=== PATIENT | female | born 1950 | race Caucasian/White ===

== ENCOUNTER 2019-05-24 16:30 | Inpatient (IN) | payer MEDICARE, BC ==
[~2019-05-24] VITALS: Ht 177.8 cm; Wt 72.6 kg
--- NOTE | 2019-05-24 19:50 | NUR ---
PATIENT ARRIVED ON UNIT VIA WHEELCHAIR WITH . PATIENT IS VIP FROM [facility]. ALERT AND ORIENTED X 4. SPEAKS FARSI, BUT IS ABLE TO UNDERSTAND SUDANESE FLUENTLY. PATIENT C/O PAIN UPON ASSESSMENT. WILL CONTACT MD FOR PAIN MEDICATION ORDERS. PATIENT AMBULATES WITH WALKER. LEFT KNEE SURGERY NOTED. DRESSING NOT CHANGED. WILL CLARIFY WOUND DRESSING ORDER WITH MD IN THE MORNING. PHOTO TAKEN. HISTORY OF DIABETES, BUT NO INSULIN SLIDING SCALE. ITEMS CATEGORIZED. MRSA SWAB DONE. CALL LIGHT AND FREQUENTLY USED ITEMS WITHIN REACH. WILL CONTINUE TO MONITOR.
[2019-05-24] MEDS ORDERED: LATA2.5D2 LEFTEYE (20:31)
[2019-05-24] MEDS ORDERED: FLUO40CA8 PO (20:31)
[2019-05-24] MEDS ORDERED: DORZ10DR10 LEFTEYE (20:31)
[2019-05-24] MEDS ORDERED: BRIN10DR LEFTEYE (20:31)
[2019-05-24] MEDS ORDERED: BISA-79 PO (20:31)
[2019-05-24] MEDS ORDERED: TIMO5SOL11 LEFTEYE (20:31)
[2019-05-24] MEDS ORDERED: METF-440 PO (20:31)
[2019-05-24] MEDS ORDERED: ASPI-612 PO (20:31)
[2019-05-24] MEDS ORDERED: BISA10SU61 RC (20:31)
[2019-05-24] MEDS ORDERED: BISACODYL 5 MG TABLET.DR PO SCH (21:00)
[2019-05-24] MEDS ORDERED: BISACODYL 10 MG SUPP.RECT RC SCH (21:00)
[2019-05-24 21:05] VITALS: BP 126/42
[2019-05-24] MEDS: LATANOPROST OPHT DROP 2.5 ML BOTTLE LEFTEYE SCH (21:21)
[2019-05-24] MEDS: OXYCODONE HCL 5 MG TABLET PO PRN (21:48)
--- NOTE | 2019-05-24 23:01 | NUR ---
POST OP APPOINTMENT WITH SURGEON KAMILA 06/03/2019 2:45 PM. AT [facility]. PHONE NUMBER .
[2019-05-25 05:05] VITALS: BP 114/49
[2019-05-25] MEDS: OXYCODONE HCL 5 MG TABLET PO PRN (05:36)
--- NOTE | 2019-05-25 05:36 | NUR ---
Patient noted to have an increased temperature of 102. Left knee noted to be slightly red. 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 Will continue to monitor.
[2019-05-25 06:14] LABS: BASOPHILS % (AUTO) 0.2 % (0.0-2.0); EOSINOPHILS % (AUTO) 0.4 % (0.0-7.0); HEMATOCRIT 32.6 % (31.2-41.9); HEMOGLOBIN 10.9 g/dL (10.9-14.3); LYMPHOCYTES # (AUTO) 1.6 K/uL (20.0-40.0); LYMPHOCYTES % (AUTO) 22.7 % (20.5-51.5); MEAN CORPUSCULAR HGB CONC 33 g/dL (32.3-35.6); MEAN CORPUSCULAR VOLUME 86.8 fL (75.5-95.3); MONOCYTES # (AUTO) 0.6 K/uL (2.0-10.0); MONOCYTES % (AUTO) 8.2 % (0.0-11.0); NEUTROPHILS # (AUTO) 4.8 K/uL (1.8-8.9); NEUTROPHILS % (AUTO) 68.5 % (38.5-71.5); PLATELET COUNT (AUTO) 171 K/uL (179-408); RED BLOOD CELL COUNT(AUTO) 3.75 MIL/uL (3.63-4.92)
--- NOTE | 2019-05-25 06:20 | NUR ---
Spoke with disease education specialist VIP MD regarding increased temperature and reddened wound appearance. MD order stat labs and Tylenol [id number]. Will endorse to oncoming shift accordingly.
[2019-05-25 06:24] LABS: CREATININE 0.5 mg/dL (0.6-1.3); POTASSIUM 4.2 mmol/L (3.5-5.1)
[2019-05-25] MEDS: ACETAMINOPHEN 325 MG TABLET PO PRN ×2 (06:29→20:01)
[2019-05-25 06:30] LABS: BILIRUBIN,TOTAL 0.7 mg/dL (0.2-1.0); TOTAL PROTEIN, SERUM 6.2 g/dL (6.4-8.2)
[2019-05-25 08:00] VITALS: BP 97/49
[2019-05-25 08:04] LABS: *BLOOD, URINE NEGATIVE (NEGATIVE); *CLARITY,URINE CLEAR (CLEAR); *COLOR,URINE AMBER (YELLOW); *KETONES,URINE NEGATIVE (NEGATIVE); LEUKOCYTE ESTERASE ,URINE NEGATIVE (NEGATIVE); NITRITE, URINE NEGATIVE (NEGATIVE); PH,URINE 8.5 (5.0-8.0); UGLUCOSE NEGATIVE (NEGATIVE)
[2019-05-25 08:13] LABS: *BILIRUBIN,URIN 1+ (NEGATIVE)
[2019-05-25] MEDS: DORZOLAMIDE 2% OPHT DROP 10 ML BOTTLE LEFTEYE SCH ×3 (08:13→16:32)
[2019-05-25] MEDS: ASPIRIN 325 MG TABLET PO SCH ×2 (08:20→16:32)
[2019-05-25] MEDS: FLUOXETINE HCL 20 MG CAPSULE PO SCH (08:20)
[2019-05-25] MEDS: METFORMIN HCL 500 MG TABLET PO SCH (08:20)
[2019-05-25] MEDS: TIMOLOL MALEATE XE 0.5% OPHT 5 ML BOTTLE LEFTEYE SCH (08:20)
[2019-05-25 08:21] LABS: BACTERIA,URINE NONE SEEN /HPF (NONE SEEN); RBC,URINE 0-3 /HPF (0-3); SQUAMOUS EPITHELIAL CELL,UR FEW /HPF (NONE SEEN); WBC,URINE 0-3 /HPF (0-3)
[2019-05-25] MEDS ORDERED: BRINZOLAMIDE 1% OPHT DROP 10 ML BOTTLE LEFTEYE SCH (09:00)
--- NOTE | 2019-05-25 15:56 | NUR ---
Received patient awake in bed in stable condition. Started therapy with OT/PT. tolerated well. Pain management receive prior therapy. not in distress. refuse suppository for BM this morning and at this time. Latest temp-98.5'F. no complaint of pain/discomfort. will endorse and continue monitor
[2019-05-25 16:04] VITALS: BP 118/56
--- NOTE | 2019-05-25 19:28 | NUR ---
Patient received in bed, with family at bedside. Alert and oriented x 4. C/O left knee pain upon assessment, but patient does not want pain medication at this time. Increased temperature when vital signs taken. Will administer Tylenol. Left knee original dressing still. Day shift unable to get in touch with surgeon to verify dressing order. Will follow up. Call light and frequently used items within reach. Will continue to monitor.
[2019-05-25] MEDS: LATANOPROST OPHT DROP 2.5 ML BOTTLE LEFTEYE SCH (20:04)
[2019-05-25 20:36] VITALS: BP 101/58
[2019-05-26 06:20] VITALS: BP 139/58
[2019-05-26 07:10] VITALS: BP 126/57
[2019-05-26] MEDS: METFORMIN HCL 500 MG TABLET PO SCH (08:23)
[2019-05-26] MEDS: TIMOLOL MALEATE XE 0.5% OPHT 5 ML BOTTLE LEFTEYE SCH (08:23)
[2019-05-26] MEDS: ASPIRIN 325 MG TABLET PO SCH ×2 (08:24→17:09)
[2019-05-26] MEDS: FLUOXETINE HCL 20 MG CAPSULE PO SCH (08:24)
[2019-05-26] MEDS: DORZOLAMIDE 2% OPHT DROP 10 ML BOTTLE LEFTEYE SCH ×3 (08:24→17:09)
--- NOTE | 2019-05-26 14:37 | NUR ---
Pt received this morning in bed resting. Pt assessed, AOx4, able to make needs known, reports slight pain but does not want pain medication, no acute distress or SOB noted. VSS on RA, no fever with temp 98.3. Left knee original dressing still intact. Pt compliant with routine medications and cooperative with therapies as offered. Family visited with Pt for lunch. Bed in locked and lowest position, with side rails up x2. Call light and personal belongings placed within reach. All safety and comfort measures implemented. Will continue to monitor.
[2019-05-26 15:10] VITALS: BP 97/58
[2019-05-26 19:37] VITALS: BP 116/58
--- NOTE | 2019-05-26 19:39 | NUR ---
Patient received in bed, with family at bedside. Alert and oriented x 4. No C/O pain, SOB, or distress upon assessment. Left knee original dressing. Call light and frequently used items within reach. Will continue to monitor.
[2019-05-26] MEDS: LATANOPROST OPHT DROP 2.5 ML BOTTLE LEFTEYE SCH (20:16)
[2019-05-27 04:39] VITALS: BP 113/58
[2019-05-27] MEDS: FLUOXETINE HCL 20 MG CAPSULE PO SCH (08:01)
[2019-05-27] MEDS: METFORMIN HCL 500 MG TABLET PO SCH (08:01)
[2019-05-27] MEDS: DORZOLAMIDE 2% OPHT DROP 10 ML BOTTLE LEFTEYE SCH ×3 (08:01→17:12)
[2019-05-27] MEDS: ACETAMINOPHEN 325 MG TABLET PO PRN (08:01)
[2019-05-27] MEDS: ASPIRIN 325 MG TABLET PO SCH ×2 (08:01→17:11)
[2019-05-27] MEDS: TIMOLOL MALEATE XE 0.5% OPHT 5 ML BOTTLE LEFTEYE SCH (08:02)
[2019-05-27 08:35] VITALS: BP 106/50
--- NOTE | 2019-05-27 10:32 | NUR ---
INDIVIDUALIZED OVERALL PLAN OF CARE
--- NOTE | 2019-05-27 11:00 | NUR ---
Tried to call Dr Bynum's clinic, ortho for surgical wound care and follow-up appointment verification. No answer, will try again.
--- NOTE | 2019-05-27 12:37 | NUR ---
Received patient, up with occupational therapy, morning care done. Able to ambulate well with front wheel walker, with tolerable pain over left leg. PRN Tylenol given. Not in any form of distress.
--- NOTE | 2019-05-27 15:00 | NUR ---
Called Dr Bynum ([phone]) for surgical wound care orders and follow-up but still with voicemail. Left voicemail and awaiting for call back.
--- NOTE | 2019-05-27 15:19 | NUR ---
WOUND CARE CONSULT: PT PRESENTS WITH LEFT KNEE ORTHO DRESSING WHICH IS DRY AND INTACT WITH SWELLING TO KNEE AND SOME DISCOLORATION TO SKIN, PRESENT ON ADMISSION. DEFER TO ORTHO MD FOR DRESSING CHANGE. PT HAS APPT WITH ORTHO PER NURSING STAFF. PT IS AMBULATORY AND CONTINENT. WILL SEE PRN. CURRENT MARIAA SCORE IS 19.
[2019-05-27 16:28] VITALS: BP 102/0
[2019-05-27 19:47] VITALS: BP 131/61
[2019-05-27] MEDS: LATANOPROST OPHT DROP 2.5 ML BOTTLE LEFTEYE SCH (20:22)
--- NOTE | 2019-05-27 21:34 | NUR ---
received in bed upon rounds. aaox4. no acute distress noted. VSS. kept comfortable. needs attended. admitted for a removal of harware to left femoral Dressing clean dry and intact.On pain management. Denies any pain nor any discomfort. Will monitor patient.
[2019-05-28 05:05] VITALS: BP 111/63
--- NOTE | 2019-05-28 06:11 | NUR ---
quiet night. slept well most of the shift. needs attended. VSS. kept comfortable. no acute distress noted. denies any pain nor any discomfort. siderails for safety.
[2019-05-28] MEDS: TIMOLOL MALEATE XE 0.5% OPHT 5 ML BOTTLE LEFTEYE SCH (08:10)
[2019-05-28] MEDS: DORZOLAMIDE 2% OPHT DROP 10 ML BOTTLE LEFTEYE SCH ×3 (08:11→17:04)
[2019-05-28] MEDS: ASPIRIN 325 MG TABLET PO SCH ×2 (08:11→17:04)
[2019-05-28] MEDS: FLUOXETINE HCL 20 MG CAPSULE PO SCH (08:11)
[2019-05-28] MEDS: METFORMIN HCL 500 MG TABLET PO SCH (08:11)
[2019-05-28 08:29] VITALS: BP 112/53
[2019-05-28] MEDS: OXYCODONE HCL 5 MG TABLET PO PRN (09:10)
--- NOTE | 2019-05-28 11:18 | NUR ---
Patient continue therapy for unsteady gait and ADL. tolerated well. Continue pain management oxycodone 10 mg PRN-given prior to therapy. not in distress. will continue monitor
[2019-05-28 16:32] VITALS: BP 109/54
[2019-05-28] MEDS: LATANOPROST OPHT DROP 2.5 ML BOTTLE LEFTEYE SCH (20:11)
--- NOTE | 2019-05-28 20:32 | NUR ---
Received pt sitting on the chair and watching tv. AAO x4. No acute distress noted. Denies pain or discomfort. Safety measures maintained. Call light and personal belongings within reach. Will continue to monitor.
[2019-05-28 20:46] VITALS: BP 103/51
[2019-05-29 04:00] VITALS: BP 118/58
[2019-05-29] MEDS: ACETAMINOPHEN 325 MG TABLET PO PRN (08:22)
[2019-05-29] MEDS: TIMOLOL MALEATE XE 0.5% OPHT 5 ML BOTTLE LEFTEYE SCH (08:22)
[2019-05-29] MEDS: ASPIRIN 325 MG TABLET PO SCH ×2 (08:22→16:34)
[2019-05-29] MEDS: METFORMIN HCL 500 MG TABLET PO SCH (08:22)
[2019-05-29] MEDS: FLUOXETINE HCL 20 MG CAPSULE PO SCH (08:22)
[2019-05-29] MEDS: DORZOLAMIDE 2% OPHT DROP 10 ML BOTTLE LEFTEYE SCH ×3 (08:23→16:34)
--- NOTE | 2019-05-29 09:00 | NUR ---
Received pt. in bed in no distress. A/OX4 verbally responsive and able to make her needs known. No new skin condition. Lt. knee covered with C/D/I dressing. All needs attended and met promptly. All due medications given as ordered and tolerated well. Safety measures in place. Call light and all frequently used items within pt. reach. Will continue to monitor accordingly.
[2019-05-29 09:25] VITALS: BP 112/53
[2019-05-29 16:15] VITALS: BP 115/50
--- NOTE | 2019-05-29 18:24 | NUR ---
End of shift note: All needs attended and met promptly. Safety measures in placed. Bed in low position, brake on, side rails up x2 as an enabler. Call light and all frequently used items within pt. reach. Will endorse to next shift accordingly.
--- NOTE | 2019-05-29 19:50 | NUR ---
Patient received in chair, with family at bedside. Alert and oriented x 4. C/O left knee pain upon assessment, but patient does not want pain medication at this time. Left knee original dressing intact. Call light and frequently used items within reach. Will continue to monitor.
[2019-05-29] MEDS: LATANOPROST OPHT DROP 2.5 ML BOTTLE LEFTEYE SCH (20:12)
[2019-05-29 20:43] VITALS: BP 113/45
[2019-05-30 04:55] VITALS: BP 112/51
[2019-05-30 07:30] VITALS: BP 96/50
[2019-05-30] MEDS: ASPIRIN 325 MG TABLET PO SCH ×2 (08:27→16:29)
[2019-05-30] MEDS: FLUOXETINE HCL 20 MG CAPSULE PO SCH (08:28)
[2019-05-30] MEDS: TIMOLOL MALEATE XE 0.5% OPHT 5 ML BOTTLE LEFTEYE SCH (08:28)
[2019-05-30] MEDS: METFORMIN HCL 500 MG TABLET PO SCH (08:28)
[2019-05-30] MEDS: DORZOLAMIDE 2% OPHT DROP 10 ML BOTTLE LEFTEYE SCH ×3 (08:28→16:29)
[2019-05-30] MEDS: ACETAMINOPHEN 325 MG TABLET PO PRN (08:28)
--- NOTE | 2019-05-30 08:50 | NUR ---
Received pt. sitting on chair. A/OX4 verbally responsive and able to make her needs known. No new skin condition. Lt. knee covered dressing C/D/I. All needs attended and met promptly. All due medications given as ordered and tolerated well. No s/sx of hypo/hyperglycemia. Safety measures in place. Call light and all frequently used items within pt. reach. Will continue to monitor accordingly.
[2019-05-30 17:13] VITALS: BP 112/47
--- NOTE | 2019-05-30 18:08 | NUR ---
End of shift note: No significant change during this shift. All needs attended and met promptly. Safety measures in placed. Bed in low position, brake on, side rails up x2 as an enabler. Call light and all frequently used items within pt. reach. Will endorse to next shift accordingly.
--- NOTE | 2019-05-30 19:05 | NUR ---
Awake, up in a chair during initial rounds. Presented a tolerable pain at this time. Instructed patient to call if pain persist. Safety measure and fall precaution maintained. Continue care as planned.
[2019-05-30 20:16] VITALS: BP 120/66
[2019-05-30] MEDS: LATANOPROST OPHT DROP 2.5 ML BOTTLE LEFTEYE SCH (21:06)
[2019-05-31 06:06] VITALS: BP 118/60
--- NOTE | 2019-05-31 06:47 | NUR ---
Shift End Report: VS stable. Slept good. No complaint presented throughout the night. All needs attended and met. No significant event reported. Continue current rehab plan of care.
--- NOTE | 2019-05-31 08:10 | NUR ---
Received patient, awake, alert x4. Not in any form of distress. With tolerable pain over left leg area. Morning care done. Assisted to chair for breakfast.
[2019-05-31 08:58] VITALS: BP 100/56
[2019-05-31] MEDS: METFORMIN HCL 500 MG TABLET PO SCH (09:00)
--- NOTE | 2019-05-31 09:00 | NUR ---
Up with physical therapy tolerating well. With tolerable pain over left leg area, Tylenol 650 mg PRN given. Showered with minimum assistance, kept surgical area dry. Original surgical dressing intact and dry with no S/S of infection.
[2019-05-31] MEDS: DORZOLAMIDE 2% OPHT DROP 10 ML BOTTLE LEFTEYE SCH ×3 (09:01→17:29)
[2019-05-31] MEDS: FLUOXETINE HCL 20 MG CAPSULE PO SCH (09:01)
[2019-05-31] MEDS: ASPIRIN 325 MG TABLET PO SCH ×2 (09:01→17:29)
[2019-05-31] MEDS: TIMOLOL MALEATE XE 0.5% OPHT 5 ML BOTTLE LEFTEYE SCH (09:01)
[2019-05-31] MEDS: ACETAMINOPHEN 325 MG TABLET PO PRN (09:32)
--- NOTE | 2019-05-31 13:08 | NUR ---
INTERDISCIPLINARY TEAM CONFERENCE
[2019-05-31 16:49] VITALS: BP 112/54
--- NOTE | 2019-05-31 19:00 | NUR ---
Awake, up in a chair. Not in distress. Denies any pain/discomforts at this time. Safety measures and fall precaution maintained. Continue care as planned.
[2019-05-31 19:45] VITALS: BP 125/48
[2019-05-31] MEDS: LATANOPROST OPHT DROP 2.5 ML BOTTLE LEFTEYE SCH (20:37)
[2019-06-01 05:35] VITALS: BP 113/50
--- NOTE | 2019-06-01 06:26 | NUR ---
Shift End Report: VSS. Slept good. No complaint presented the whole night. All needs attended and met. No significant event reported. Continue current rehab plan of care.
[2019-06-01 08:00] VITALS: BP 115/51
--- NOTE | 2019-06-01 09:00 | NUR ---
Received patient, awake, alert x4 patient sitting on chair. Not in any for of distress, with tolerable pain over left leg, PRN Tylenol given. Morning care done.
[2019-06-01] MEDS: DORZOLAMIDE 2% OPHT DROP 10 ML BOTTLE LEFTEYE SCH ×3 (09:13→17:49)
[2019-06-01] MEDS: TIMOLOL MALEATE XE 0.5% OPHT 5 ML BOTTLE LEFTEYE SCH (09:13)
[2019-06-01] MEDS: FLUOXETINE HCL 20 MG CAPSULE PO SCH (09:13)
[2019-06-01] MEDS: ASPIRIN 325 MG TABLET PO SCH ×2 (09:13→17:50)
[2019-06-01] MEDS: METFORMIN HCL 500 MG TABLET PO SCH (09:13)
[2019-06-01] MEDS: ACETAMINOPHEN 325 MG TABLET PO PRN ×2 (09:18→17:50)
--- NOTE | 2019-06-01 10:00 | NUR ---
Tried to get a hold of Dr. Bynum for orders for surgical wound care but clinic closed at the moment. ([phone])
--- NOTE | 2019-06-01 12:37 | NUR ---
Up with physical therapy, tolerating well. Informed Dr. Riojas about dressing on left knee area and was minimally soiled from shower, Dr Riojas said OK to change surgical dressing.
[2019-06-01 16:44] VITALS: BP 109/46
[2019-06-01] MEDS: LATANOPROST OPHT DROP 2.5 ML BOTTLE LEFTEYE SCH (20:09)
[2019-06-01 20:27] VITALS: BP 106/61
--- NOTE | 2019-06-01 20:44 | NUR ---
Received pt sitting on the chair and watching tv. AAO x4. No acute distress noted. Denies pain or discomfort. Due med given as ordered. Safety measures maintained. Call light and personal belongings within reach. Will continue to monitor.
[2019-06-02 04:00] VITALS: BP 121/54
[2019-06-02] MEDS: METFORMIN HCL 500 MG TABLET PO SCH (08:35)
[2019-06-02] MEDS: ASPIRIN 325 MG TABLET PO SCH ×2 (08:35→17:23)
[2019-06-02] MEDS: FLUOXETINE HCL 20 MG CAPSULE PO SCH (08:36)
[2019-06-02] MEDS: TIMOLOL MALEATE XE 0.5% OPHT 5 ML BOTTLE LEFTEYE SCH (08:37)
[2019-06-02] MEDS: DORZOLAMIDE 2% OPHT DROP 10 ML BOTTLE LEFTEYE SCH ×3 (08:37→17:23)
[2019-06-02 08:44] VITALS: BP 115/55
--- NOTE | 2019-06-02 09:19 | NUR ---
Patient noted sitting up eating breakfast on the side of the bed, complaints of mild pain but denies need for medication, took all AM medications, no signs of distress noted, call light in reach, bed locked and in lowest position, all needs met at this time
[2019-06-02] MEDS: ACETAMINOPHEN 325 MG TABLET PO PRN (17:23)
[2019-06-02 17:54] VITALS: BP 115/55
[2019-06-02] MEDS: LATANOPROST OPHT DROP 2.5 ML BOTTLE LEFTEYE SCH (20:53)
[2019-06-02 21:07] VITALS: BP 114/63
--- NOTE | 2019-06-02 21:13 | NUR ---
Received pt walking in the hallway. AAO x4. No acute distress noted. Denies pain or discomfort. Due med given as ordered. Pt is now sitting on the chair and watching tv. Safety measures maintained. Call light and personal belongings within reach. Will continue to monitor.
[2019-06-03 06:41] VITALS: BP 117/61
[2019-06-03 08:02] VITALS: BP 104/59
--- NOTE | 2019-06-03 08:15 | NUR ---
Patient noted sitting up in chair on cell phone, no complaints of pain at this time, no signs of distress noted, call light in reach, bed locked and in lowest position, all needs met
[2019-06-03] MEDS: METFORMIN HCL 500 MG TABLET PO SCH (08:16)
[2019-06-03] MEDS: ASPIRIN 325 MG TABLET PO SCH (08:16)
[2019-06-03] MEDS: FLUOXETINE HCL 20 MG CAPSULE PO SCH (08:16)
[2019-06-03] MEDS: DORZOLAMIDE 2% OPHT DROP 10 ML BOTTLE LEFTEYE SCH (08:16)
[2019-06-03] MEDS: TIMOLOL MALEATE XE 0.5% OPHT 5 ML BOTTLE LEFTEYE SCH (08:17)
--- NOTE | 2019-06-03 13:19 | NUR ---
Patient left facility at this time via walker and private car, no complaints of pain, no signs of distress noted, picture of left knee taken and new dressing applied, exit care provided, all questions answered, discharge paper work given, medications faxed to pharmacy ([facility]), MD Riojas and Brigitte aware of patient's discharge, all belongings accounted for and placed in chart
[2019-06-03 17:01] VITALS: BP 139/74
== END 2019-06-03 13:20 | disposition home or self-care (01) | DRG 561 ==
PROVIDERS: ADMIT Physical Medicine & Rehabilitation Pain Medicine; ATTEND Physical Medicine & Rehabilitation Pain Medicine
DX: Z47.2 Encounter for removal of internal fixation device (principal); Z47.89 Encounter for other orthopedic aftercare; E11.9 Type 2 diabetes mellitus without complications; H40.9 Unspecified glaucoma; I10 Essential (primary) hypertension; D69.6 Thrombocytopenia, unspecified; Z85.3 Personal history of malignant neoplasm of breast
CPT/HCPCS: 36415; 73551; 83605; 85025; 87040; 87086; 92507; 92523; 97110; 97112; 97116; 97165; 97530; 97535; J3590